=== PATIENT | male | born 1965 | race Caucasian/White ===

== ENCOUNTER → 2017-07-09 | Outpatient (CLI) | payer OTHER | LOC: ULTRA 06-22 09:15 | DX: N20.0 Calculus of kidney (principal); K76.89 Other specified diseases of liver; I10 Essential (primary) hypertension ==

== ENCOUNTER → 2020-08-13 | Outpatient (CLI) | payer OTHER | LOC: CAT 07:52 | PROVIDERS: ATTEND Family Medicine | DX: Z13.6 Encounter for screening for cardiovascular disorders (principal) ==